=== PATIENT | female | born 1990 | race Caucasian/White ===

== ENCOUNTER 2017-04-23 02:30 | Inpatient (IN) | payer BC ==
[2017-04-23] MEDS ORDERED: Lidocaine 1% 50 ML MDV INJECT ONE (16:22)
[2017-04-23] MEDS ORDERED: Ondansetron 4 MG/2 ML SDV IVPUSH PRN (16:22)
[2017-04-23] MEDS ORDERED: Sodium Chloride 0.9% 10 ML Syringe FLUSH PRN (16:22)
[2017-04-23] MEDS ORDERED: Nalbuphine 20 MG/1 ML Amp IVPUSH PRN (16:25)
[2017-04-23] MEDS ORDERED: Oxytocin/Lactated Ringers 10 UNIT/1,000 ML BAG IV SCH ×2 (16:30)
[2017-04-23] MEDS: Lactated Ringers 1,000 ML IV SCH ×3 (16:49→22:01)
--- NOTE | 2017-04-23 17:36 | PCM.HP ---
<Aleah Mayes - Last Filed: 04/23/17 17:26> H&P History of Present Illness - General Date of Service: 04/23/17 Admit Problem/Dx: 39 week 4/7 week intrauterine , induction of labor Source of Information: Patient History Limitations: Reports: No Limitations - History of Present Illness Initial Comments - Free Text/Narative: Patient is a 27 year old white female that presents to the hospital for induction of labor and delivery at [facility]. She has made cervical change from her last evaluation in clinic from 2 cm to 4 cm. Her MONIQUE is 04/26/2017 and this is based on ultrasound reading from 09/15/2016. Her course has been unremarkable. She was seen on regular basis, fundal height growth was appropriate. Weight gain was from 133 at the first visit to 175 taken in hospital for a total of 42 pound weight gain. She was noted to have an elevated blood pressure on 02/15/17, but the rest of the blood pressures have been in normal limits including todays. Associated Symptoms: Reports: No Other Symptoms - Related Data Allergies/Adverse Reactions: Allergies Allergy/AdvReac Type Severity Reaction Status Date / Time No Known Allergies Allergy Verified 04/23/17 16:22 Exam - Vital Signs Weight: 79.379 kg - Patient Data Lab Results Last 24 hrs: Laboratory Results - last 24 hr 04/23/17 Range/Units 16:46 WBC 9.75 (3.98-10.04) K/mm3 RBC 3.44 L (3.98-5.22) M/mm3 Hgb 11.1 L (11.2-15.7) gm/L Hct 32.1 L (34.1-44.9) % MCV 93.3 (79.4-94.8) fl MCH 32.3 H (25.6-32.2) pg MCHC 34.6 (32.2-35.5) g/dl RDW Std Deviation 41.9 (36.4-46.3) fL Plt Count 257 (182-369) K/mm3 MPV 9.7 (9.4-12.3) fl Neut % (Auto) 68.8 (34.0-71.1) % Lymph % (Auto) 18.7 L (19.3-51.7) % [place] % (Auto) 10.8 (4.7-12.5) % Eos % (Auto) 1.0 (0.7-5.8) Baso % (Auto) 0.2 (0.1-1.2) % Neut # (Auto) 6.71 H (1.56-6.13) K/mm3 Lymph # (Auto) 1.82 (1.18-3.74) K/mm3 [place] # (Auto) 1.05 H (0.24-0.36) K/mm3 Eos # (Auto) 0.10 (0.04-0.36) K/mm3 Baso # (Auto) 0.02 (0.01-0.08) K/mm3 Result Diagrams: 04/23/17 16:46 *Q Meaningful Use (ADM) - VTE *Q VTE Criteria *Q: - Stroke *Q Stroke Criteria *Q: - AMI *Q AMI Criteria *Q: Orders Last 24hrs: Active Orders 24 hr Category Date Time Status Activity as Tolerated [RC] PFP Care 04/23/17 16:22 Active Communication Order [RC] ASDIRECTED Care 04/23/17 16:22 Active Heart Tones [RC] ASDIRECTED Care 04/23/17 16:23 Active Notify Provider [RC] PFP Care 04/23/17 16:22 Active Notify Provider [RC] PRN Care 04/23/17 16:22 Active Peripheral IV Care [RC] . DIRECTED Care 04/23/17 16:23 Active Vital Signs [RC] PER UNIT ROUTINE Care 04/23/17 16:22 Active Clear Liquid Diet [DIET] Diet 04/23/17 Dinner Active Lactated Ringers [Ringers, Lactated] 1,000 ml Med 04/23/17 16:30 Active IV ASDIRECTED Nalbuphine [Nubain] Med 04/23/17 16:25 Active 10 mg IVPUSH Q3H PRN Ondansetron [Zofran] Med 04/23/17 16:22 Active 4 mg IVPUSH Q4H PRN Oxytocin/Lactated Ringers [Pitocin in LR 10 Units/1,000 Med 04/23/17 16:30 Active ML] 10 unit in 1,000 ml IV .CONTINUOUS Oxytocin/Lactated Ringers [Pitocin in LR 10 Units/1,000 Med 04/23/17 16:30 Active ML] 10 unit in 1,000 ml IV TITRATE Sodium Chloride 0.9% [Saline Flush] Med 04/23/17 16:22 Active 10 ml FLUSH ASDIRECTED PRN Electronic Heart Tones Ext w TOCO [WOMSER] Oth 04/23/17 16:22 Ordered Routine Electronic Heart Tones Internal [WOMSER] Per Unit Ot 04/23/17 16:22 Ordered Routine Peripheral IV Insertion Adult [OM.PC] Routine Oth 04/23/17 16:22 Ordered Resuscitation Status Routine Resus Stat 04/23/17 16:22 Ordered Medication Orders Lactated Ringer's (Ringers, Lactated) 1,000 mls @ 100 mls/hr IV ASDIRECTED RICKI Last Admin: 04/23/17 16:49 Dose: 100 mls/hr Oxytocin/Lactated Ringer's (Pitocin In Lr 10 Units/1,000 Ml) 10 unit in 1,000 mls @ 500 mls/hr IV .CONTINUOUS RICKI Oxytocin/Lactated Ringer's (Pitocin In Lr 10 Units/1,000 Ml) 10 unit in 1,000 mls @ 12 mls/hr IV TITRATE RICKI; 2 MUNITS/MIN PRN Reason: Protocol Last Admin: 04/23/17 16:50 Dose: 2 munits/min, 12 mls/hr Nalbuphine HCl (Nubain) 10 mg IVPUSH Q3H PRN PRN Reason: Pain Ondansetron HCl (Zofran) 4 mg IVPUSH Q4H PRN PRN Reason: Nausea/Vomiting Sodium Chloride (Saline Flush) 10 ml FLUSH ASDIRECTED PRN PRN Reason: Keep Vein Open <Al Krishna F - Last Filed: 04/24/17 03:15> H&P History of Present Illness - General Admit Problem/Dx: Admission Diagnosis/Problem Admission Diagnosis/Problem Normal Source of Information: Patient History Limitations: Reports: No Limitations - History of Present Illness Initial Comments - Free Text/Narative: course was relatively unremarkable. Patient made good fundal height growth and had appropriate weight gain. She has no concerns. lab: Blood is A+, GC and chlamydia S is negative. HIV and hepatitis B essays negative. VDRL was nonreactive. Group B strep screen was negative. Hemoglobin at first visit was 11.0 g/dL and platelets were 372,000. Pap smear is negative. Second trimester labs included a hemoglobin of 12.0 g/dL and platelets of 246,000. Diabetic screening test was normal with 1 hour GTT of 81. Allergies: none Medications: 1. vitamins 2. Ferrous sulfate 325 mg per day. Past surgical history: [place] teeth extraction Past medical history: Unremarkable Family history: No known history of hypertension, diabetes or cancer in the family. Her parents are alive and well. Maternal grandmother is . Maternal grandfather is alive at age 96. Paternal grandfather is secondary to alcohol abuse. Paternal grandfather secondary to alcohol abuse. Mother has section for failure to progress. No bleeding or clotting disorders noted. No anesthesia problems noted. Social history. Patient is . is Khari Pulido. She denies any significant loss of alcohol, drugs or tobacco. 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 Both originated in [facility] but are currently living and working in [place]. Her is an eighth gradecigar packer and grader. She has a good support system. Review of systems: Skin: Negative CardioVascular: No chest pain or exercise intolerance Respiratory: No infectious symptoms or shortness of breath GI: Negative : changes associated with including fundal height growth Musculoskeletal: Occasional bilateral lower extremity edema-mild Neurological: Negative Physical exam: Blood pressure 119/74. Pulse is 58. Respirations 16. Temperature is 98.6. Weight is 175 pounds. Height is 5 feet 11. heart rate 140. In general patient is well-developed, well-nourished, pleasant female stated age in no acute distress. She is alert and oriented 3 and appears to be a good historian. Skin is warm and dry without lesions. HEENT, neck and back within normal limits Lungs are clear with good breath sounds in all lung lawler. Cardiovascular exam shows regular rate and rhythm without murmurs. Breasts exam deferred, having been done at first it was found to be normal. Patient does plan to nurse Abdomen is protuberant fundal height of 39 cm, consistent with dates. Baby in a vertex presentation by Bill maneuvers. Cervix is 4 cm, 90% effaced, -1 station, anterior, very soft. Bag markham intact. Extremities and neurological exam are grossly within normal limits. Exam - Vital Signs Vital Signs: Last Vital Signs Temp 36.8 C 07/30/17 21:33 Pulse 84 04/23/17 21:33 Resp 16 04/23/17 21:33 BP 134/74 04/23/17 21:33 Pulse Ox 96 04/23/17 21:33 - Patient Data Lab Results Last 24 hrs: Laboratory Results - last 24 hr 04/23/17 Range/Units 16:46 WBC 9.75 (3.98-10.04) K/mm3 RBC 3.44 L (3.98-5.22) M/mm3 Hgb 11.1 L (11.2-15.7) gm/L Hct 32.1 L (34.1-44.9) % MCV 93.3 (79.4-94.8) fl MCH 32.3 H (25.6-32.2) pg MCHC 34.6 (32.2-35.5) g/dl RDW Std Deviation 41.9 (36.4-46.3) fL Plt Count 257 (182-369) K/mm3 MPV 9.7 (9.4-12.3) fl Neut % (Auto) 68.8 (34.0-71.1) % Lymph % (Auto) 18.7 L (19.3-51.7) % [place] % (Auto) 10.8 (4.7-12.5) % Eos % (Auto) 1.0 (0.7-5.8) Baso % (Auto) 0.2 (0.1-1.2) % Neut # (Auto) 6.71 H (1.56-6.13) K/mm3 Lymph # (Auto) 1.82 (1.18-3.74) K/mm3 [place] # (Auto) 1.05 H (0.24-0.36) K/mm3 Eos # (Auto) 0.10 (0.04-0.36) K/mm3 Baso # (Auto) 0.02 (0.01-0.08) K/mm3 Result Diagrams: 04/23/17 16:46 *Q Meaningful Use (ADM) - VTE *Q VTE Criteria *Q: - Stroke *Q Stroke Criteria *Q: - AMI *Q AMI Criteria *Q: Orders Last 24hrs: Active Orders 24 hr Category Date Time Status Patient Status Manage Transfer [TRANSFER] Routine ADT 04/24/17 02:48 Active Activity as Tolerated [RC] PFP Care 04/23/17 16:22 Active Communication Order [RC] ASDIRECTED Care 04/23/17 16:22 Active Communication Order [RC] ASDIRECTED Care 04/23/17 20:57 Active Cooling Warming Measures [RC] ASDIRECTED Care 04/23/17 20:57 Active Heart Tones [RC] ASDIRECTED Care 04/23/17 16:23 Active Notify Provider [RC] ASDIRECTED Care 04/23/17 20:57 Active Notify Provider [RC] PFP Care 04/23/17 16:22 Active Notify Provider [RC] PRN Care 04/23/17 16:22 Active Oxygen Therapy [RC] ASDIRECTED Care 04/23/17 20:57 Active Peripheral IV Care [RC] . DIRECTED Care 04/23/17 16:23 Active Pulse Oximetry [RC] ASDIRECTED Care 04/23/17 20:57 Active Verify Patient Consent Obtain [RC] ASDIRECTED Care 04/23/17 20:57 Active Vital Signs [RC] PER UNIT ROUTINE Care 04/23/17 16:22 Active Vital Signs [RC] Q1H Care 04/23/17 20:57 Active Clear Liquid Diet [DIET] Diet 04/23/17 Dinner Active Bupivacaine/fentaNYL/NS [fentaNYL/Bupivacaine/NS 2 MCG- Med 04/23/17 21:00 Active 0.125% 100 ML] 100 ml EPIDUR ASDIRECTED Lactated Ringers [Ringers, Lactated] 1,000 ml Med 04/23/17 16:30 Active IV ASDIRECTED Nalbuphine [Nubain] Med 04/23/17 16:25 Active 10 mg IVPUSH Q3H PRN Ondansetron [Zofran] Med 04/23/17 16:22 Active 4 mg IVPUSH Q4H PRN Oxytocin/Lactated Ringers [Pitocin in LR 10 Units/1,000 Med 04/23/17 16:30 Active ML] 10 unit in 1,000 ml IV .CONTINUOUS Oxytocin/Lactated Ringers [Pitocin in LR 10 Units/1,000 Med 04/23/17 16:30 Active ML] 10 unit in 1,000 ml IV TITRATE Sodium Chloride 0.9% [Saline Flush] Med 04/23/17 16:22 Active 10 ml FLUSH ASDIRECTED PRN diphenhydrAMINE [Benadryl] Med 04/23/17 20:57 Active 25 mg IVPUSH Q6H PRN ePHEDrine [ePHEDrine Sulfate] Med 04/23/17 20:57 Active 5 mg IVPUSH ASDIRECTED PRN fentaNYL [Sublimaze] Med 04/23/17 20:57 Active 100 mcg EPIDUR Q3H PRN Electronic Heart Tones Ext w TOCO [WOMSER] Ot 04/23/17 16:22 Ordered Routine Electronic Heart Tones Internal [WOMSER] Per Unit Ot 04/23/17 16:22 Ordered Routine Peripheral IV Insertion Adult [OM.PC] Routine Oth 04/23/17 16:22 Ordered Resuscitation Status Routine Resus Stat 04/23/17 16:22 Ordered Medication Orders Diphenhydramine HCl (Benadryl) 25 mg IVPUSH Q6H PRN PRN Reason: Itching Ephedrine Sulfate (Ephedrine Sulfate) 5 mg IVPUSH ASDIRECTED PRN PRN Reason: HYPOTENTSION Fentanyl (Sublimaze) 100 mcg EPIDUR Q3H PRN PRN Reason: PAIN Last Admin: 04/23/17 21:29 Dose: 100 mcg Fentanyl/Bupivacaine HCl (Fentanyl/Bupivacaine/Ns 2 Mcg-0.125% 100 Ml) 100 ml EPIDUR ASDIRECTED RICKI Last Admin: 04/23/17 21:31 Dose: 100 ml Lactated Ringer's (Ringers, Lactated) 1,000 mls @ 100 mls/hr IV ASDIRECTED RICKI Last Admin: 04/23/17 21:00 Dose: 999 mls/hr Infusion: 04/23/17 21:00 Dose: 100 mls/hr Admin: 04/23/17 16:49 Dose: 100 mls/hr Oxytocin/Lactated Ringer's (Pitocin In Lr 10 Units/1,000 Ml) 10 unit in 1,000 mls @ 500 mls/hr IV .CONTINUOUS RICKI Oxytocin/Lactated Ringer's (Pitocin In Lr 10 Units/1,000 Ml) 10 unit in 1,000 mls @ 12 mls/hr IV TITRATE RICKI; 2 MUNITS/MIN PRN Reason: Protocol Last Titration: 04/23/17 23:45 Dose: 3 munits/min, 18 mls/hr Titration: 04/23/17 21:52 Dose: 6 munits/min, 36 mls/hr Titration: 04/23/17 20:35 Dose: 8 munits/min, 48 mls/hr Titration: 04/23/17 18:35 Dose: 6 munits/min, 36 mls/hr Titration: 04/23/17 17:28 Dose: 4 munits/min, 24 mls/hr Admin: 04/23/17 16:50 Dose: 2 munits/min, 12 mls/hr Nalbuphine HCl (Nubain) 10 mg IVPUSH Q3H PRN PRN Reason: Pain Ondansetron HCl (Zofran) 4 mg IVPUSH Q4H PRN PRN Reason: Nausea/Vomiting Sodium Chloride (Saline Flush) 10 ml FLUSH ASDIRECTED PRN PRN Reason: Keep Vein Open
[2017-04-23] MEDS ORDERED: ePHEDrine 50 MG/ML SDV IVPUSH PRN (20:57)
[2017-04-23] MEDS ORDERED: diphenhydrAMINE 50 MG/ML SDV IVPUSH PRN (20:57)
[2017-04-23] MEDS ORDERED: fentaNYL 100 MCG/2 ML SDV EPIDUR PRN (20:57)
[2017-04-23] MEDS ORDERED: Bupivacaine/fentaNYL/NS 100 ML Bag EPIDUR SCH (21:00)
--- NOTE | 2017-04-23 21:34 | PCM.PREANE ---
Preanesthetic Assessment - Anesthesia/Transfusion/Family Hx Anesthesia History: No Prior Anesthesia Family History of Anesthesia Reaction: No Transfusion History: No Prior Transfusion(s) - Review of Systems General: No Symptoms Pulmonary: No Symptoms Cardiovascular: No Symptoms Gastrointestinal: No Symptoms Neurological: No Symptoms Other: Reports: None - Physical Assessment Pulse: 84 O2 Sat by Pulse Oximetry: 96 Respiratory Rate: 16 Blood Pressure: 134/74 Temperature: 36.8 C Vital Signs: Last Vital Signs Temp 37.0 C 04/23/17 16:22 Pulse 58 L 04/23/17 16:22 Resp 16 04/23/17 16:22 BP 119/74 04/23/17 16:22 Pulse Ox Height: 1.8 m Weight: 79.379 kg ASA Class: 2 Mental Status: Alert & Oriented x3 Airway Class: Mallampati = 1 Dentition: Reports: Normal Dentition Thyro-Mental Finger Breadths: 3 Mouth Opening Finger Breadths: 3 ROM/Head Extension: Full Lungs: Clear to Auscultation, Normal Respiratory Effort Cardiovascular: Regular Rate, Regular Rhythm - Lab Values: Laboratory Last Values WBC 9.75 K/mm3 (3.98-10.04) 04/23/17 16:46 RBC 3.44 M/mm3 (3.98-5.22) L 04/23/17 16:46 Hgb 11.1 gm/L (11.2-15.7) L 04/23/17 16:46 Hct 32.1 % (34.1-44.9) L 04/23/17 16:46 MCV 93.3 fl (79.4-94.8) 04/23/17 16:46 MCH 32.3 pg (25.6-32.2) H 04/23/17 16:46 MCHC 34.6 g/dl (32.2-35.5) 04/23/17 16:46 RDW Std Deviation 41.9 fL (36.4-46.3) 04/23/17 16:46 Plt Count 257 K/mm3 (182-369) 04/23/17 16:46 MPV 9.7 fl (9.4-12.3) 04/23/17 16:46 Neut % (Auto) 68.8 % (34.0-71.1) 04/23/17 16:46 Lymph % (Auto) 18.7 % (19.3-51.7) L 04/23/17 16:46 [place] % (Auto) 10.8 % (4.7-12.5) 04/23/17 16:46 Eos % (Auto) 1.0 (0.7-5.8) 04/23/17 16:46 Baso % (Auto) 0.2 % (0.1-1.2) 04/23/17 16:46 Neut # (Auto) 6.71 K/mm3 (1.56-6.13) H 04/23/17 16:46 Lymph # (Auto) 1.82 K/mm3 (1.18-3.74) 04/23/17 16:46 [place] # (Auto) 1.05 K/mm3 (0.24-0.36) H 04/23/17 16:46 Eos # (Auto) 0.10 K/mm3 (0.04-0.36) 04/23/17 16:46 Baso # (Auto) 0.02 K/mm3 (0.01-0.08) 04/23/17 16:46 - Allergies Allergies/Adverse Reactions: Allergies Allergy/AdvReac Type Severity Reaction Status Date / Time No Known Allergies Allergy Verified 04/23/17 16:22 - Anesthesia Plan Pre-Op Medication Ordered: None - Acknowledgements Anesthesia Type Planned: Epidural Pt an Appropriate Candidate for the Planned Anesthesia: Yes Alternatives and Risks of Anesthesia Discussed w Pt/Guardian: Yes Pt/Guardian Understands and Agrees with Anesthesia Plan: Yes PreAnesthesia Questionnaire Gastrointestinal History: Reports: GERD 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: - SUBSTANCE USE Smoking Status *Q: Never Smoker Second Hand Smoke Exposure: No Recreational Drug Use History: No - HOME MEDS Home Medications: Home Meds Ferrous Sulfate [Iron] 325 mg PO DAILY 04/23/17 [History] PNV95/Ferrous Fumarate/FA [ Tablet] 1 each PO DAILY 04/23/17 [History] - CURRENT (IN HOUSE) MEDS Current Meds: Current Medications Diphenhydramine HCl (Benadryl) 25 mg IVPUSH Q6H PRN PRN Reason: Itching Ephedrine Sulfate (Ephedrine Sulfate) 5 mg IVPUSH ASDIRECTED PRN PRN Reason: HYPOTENTSION Fentanyl (Sublimaze) 100 mcg EPIDUR Q3H PRN PRN Reason: PAIN Last Admin: 04/23/17 21:29 Dose: 100 mcg Fentanyl/Bupivacaine HCl (Fentanyl/Bupivacaine/Ns 2 Mcg-0.125% 100 Ml) 100 ml EPIDUR ASDIRECTED RICKI Last Admin: 04/23/17 21:31 Dose: 100 ml Lactated Ringer's (Ringers, Lactated) 1,000 mls @ 100 mls/hr IV ASDIRECTED RICKI Last Admin: 04/23/17 21:00 Dose: 999 mls/hr Oxytocin/Lactated Ringer's (Pitocin In Lr 10 Units/1,000 Ml) 10 unit in 1,000 mls @ 500 mls/hr IV .CONTINUOUS RICKI Oxytocin/Lactated Ringer's (Pitocin In Lr 10 Units/1,000 Ml) 10 unit in 1,000 mls @ 12 mls/hr IV TITRATE RICKI; 2 MUNITS/MIN PRN Reason: Protocol Last Titration: 04/23/17 20:35 Dose: 8 munits/min, 48 mls/hr Nalbuphine HCl (Nubain) 10 mg IVPUSH Q3H PRN PRN Reason: Pain Ondansetron HCl (Zofran) 4 mg IVPUSH Q4H PRN PRN Reason: Nausea/Vomiting Sodium Chloride (Saline Flush) 10 ml FLUSH ASDIRECTED PRN PRN Reason: Keep Vein Open Discontinued Medications Lidocaine HCl (Xylocaine 1%) 50 ml INJECT ONETIME ONE Stop: 04/23/17 16:23
[2017-04-24] MEDS ORDERED: Lidocaine 1% 50 ML MDV ONE (02:08)
--- NOTE | 2017-04-24 02:55 | PCM.SN ---
- Free Text/Narrative Note: Noa is a 27-year-old 1 now para 1001 white female who was admitted late afternoon on 04/23/2017 for elective induction of labor at 39-4/7 weeks gestational age. She underwent Pitocin/artificial rupture membranes induction. She progressed adequately in labor and became completely dilated at approximately 0100 hrs. on 04/24/2017. She pushed for approximately 1 hour and 30 minutes and delivered a viable, hutson, male infant weighing 2940 g (6 lbs. 8 oz.), having Apgars of 8 and 9 and a length of 20.5 inches at 0230 hrs. on 04/24/2017. Baby delivered in the left occiput anterior position. The baby was placed on mom's abdomen. The cord was clamped 2 and cut. Cord blood was then obtained. Placenta delivered intact and complete in a Suleman presentation. It was discarded per patient desire. The umbilical cord had 3 vessels. Patient was given lidocaine 1%-10 mL total. The patient was noted to have a superficial vaginal laceration which was closed with a short running, locked suture of 3-0 Monocryl. Pitocin was administered after delivery of the baby. Estimated blood loss was 100 mL. Condition: Good. Patient plans to nurse.
[2017-04-24] MEDS ORDERED: Benzocaine/Menthol 20%-0.5% Spray 56 GM Canister TOP PRN (03:24)
[2017-04-24] MEDS ORDERED: Lanolin 100% Cream 7 GM Tube TOP PRN (03:24)
[2017-04-24] MEDS ORDERED: Witch Hazel Medicated Pads 100/Jar TOP PRN (03:24)
--- NOTE | 2017-04-24 07:46 | PCM48HPAN ---
Post Anesthesia Note - EVALUATION WITHIN 48HRS OF ANESTHETIC Vital Signs in Normal Range: Yes Patient Participated in Evaluation: Yes Respiratory Function Stable: Yes Airway Patent: Yes Cardiovascular Function Stable: Yes Hydration Status Stable: Yes Pain Control Satisfactory: Yes Nausea and Vomiting Control Satisfactory: Yes Mental Status Recovered: Yes
--- NOTE | 2017-04-24 08:17 | PCM.SN ---
- Free Text/Narrative Note: Patient is doing well this same. Minimal lochia. Pain is under good control. She is ambulating well. Epidural sworn off completely. She is nursing without problems and is voided without concerns. Patient is afebrile. Vital signs stable. Abdomen is flat, soft, nontender with uterus at umbilicus. Legs nontender. Assessment/plan: Doing well . Nursing going well. Recommend routine cares.
[2017-04-24] MEDS ORDERED: Acetaminophen 325 MG Tab PO PRN (11:39)
[2017-04-24] MEDS: Prenatal Multivitamin with Calcium/Folic Acid/Iron Tab PO SCH (12:14)
[2017-04-24] MEDS: Ibuprofen 600 MG Tab PO PRN ×2 (18:28→23:59)
[2017-04-24] MEDS: Docusate Sodium 100 MG Cap PO PRN (21:19)
[2017-04-24] MEDS ORDERED: Bupivacaine 0.25% 10 ML SDV ONE (22:22)
--- NOTE | 2017-04-25 07:57 | PCM.DCSUM1 ---
Discharge Summary - Hospital Course Free Text/Narrative:: Noa is a 27-year-old 1 now para 1001 white female who was admitted late afternoon on 04/23/2017 for elective induction of labor at 39-4/7 weeks gestational age. She underwent Pitocin/artificial rupture membranes induction. She progressed adequately in labor and became completely dilated at approximately 0100 hrs. on 04/24/2017. She pushed for approximately 1 hour and 30 minutes and delivered a viable, hutson, male infant weighing 2940 g (6 lbs. 8 oz.), having Apgars of 8 and 9 and a length of 20.5 inches at 0230 hrs. on 04/24/2017. Baby delivered in the left occiput anterior position. The baby was placed on mom's abdomen. The cord was clamped 2 and cut. Cord blood was then obtained. Placenta delivered intact and complete in a Suleman presentation. It was discarded per patient desire. The umbilical cord had 3 vessels. Patient was given lidocaine 1%-10 mL total. The patient was noted to have a superficial vaginal laceration which was closed with a short running, locked suture of 3-0 Monocryl. Pitocin was administered after delivery of the baby. Estimated blood loss was 100 mL. Condition: Good. Patient plans to nurse. patient's done well. She is nursing concerns, ambulating well and follow-up CBC is within normal limits. . Is down somewhat. She is doing well and desires to go home. - Discharge Data Discharge Date: 04/25/17 Discharge Disposition: Home, Self-Care 01 Condition: Good - Patient Instructions Diet: Regular Diet as Tolerated (Nursing diet was increased calcium and calories as directed) Activity: As Tolerated (No intercourse or tampons until bleeding resolves) Driving: May Drive Today Showering/Bathing: May Shower (May take a bath) Notify Provider of: Fever, Increased Pain, Swelling and Redness, Nausea and/or Vomiting - Discharge Plan Home Medications: Home Meds Ferrous Sulfate [Iron] 325 mg PO DAILY 04/23/17 [History] PNV95/Ferrous Fumarate/FA [ Tablet] 1 each PO DAILY 04/23/17 [History] Ibuprofen [IJD: Ibuprofen] 600 mg PO Q6H PRN #30 tablet 04/25/17 [Rx] - Patient Data Vitals - Most Recent: Last Vital Signs Temp 36.2 C 04/25/17 03:35 Pulse 49 L 04/25/17 03:35 Resp 16 04/25/17 03:35 BP 111/76 04/25/17 03:35 Pulse Ox 97 04/25/17 03:35 Weight - Most Recent: 79.379 kg Lab Results - Last 24 hrs: Laboratory Results - last 24 hr 04/25/17 Range/Units 06:30 WBC 11.77 H (3.98-10.04) K/mm3 RBC 3.11 L (3.98-5.22) M/mm3 Hgb 9.9 L (11.2-15.7) gm/L Hct 29.4 L (34.1-44.9) % MCV 94.5 (79.4-94.8) fl MCH 31.8 (25.6-32.2) pg MCHC 33.7 (32.2-35.5) g/dl RDW Std Deviation 42.8 (36.4-46.3) fL Plt Count 234 (182-369) K/mm3 MPV 9.6 (9.4-12.3) fl Med Orders - Current: Current Medications Acetaminophen (Tylenol) 650 mg PO Q6H PRN PRN Reason: Pain Last Admin: 04/24/17 12:13 Dose: 650 mg Benzocaine/Menthol (Dermoplast Pain Relief [place]) 0 gm TOP ASDIRECTED PRN PRN Reason: Perineal Comfort Measure Docusate Sodium (Colace) 100 mg PO BID PRN PRN Reason: Constipation Last Admin: 04/24/17 21:19 Dose: 100 mg Emollient Ointment (Lansinoh Hpa) 0 gm TOP ASDIRECTED PRN PRN Reason: Sore Nipples Ibuprofen (Motrin) 600 mg PO Q6H PRN PRN Reason: Pain Last Admin: 04/24/17 23:59 Dose: 600 mg Prenat Multivit/Ultimate Hoops Scoreboard Operator/Iron/Folic Ac ( Plus Iron) 1 each PO DAILY RICKI Last Admin: 04/24/17 12:14 Dose: Not Given Witch Shanel (Tucks) 1 pad TOP ASDIRECTED PRN PRN Reason: Hemorrhoid pain Discontinued Medications Bupivacaine HCl (Sensorcaine-Mpf 0.25%) 10 ml .ROUTE .STK-MED ONE Stop: 04/24/17 22:23 Diphenhydramine HCl (Benadryl) 25 mg IVPUSH Q6H PRN PRN Reason: Itching Ephedrine Sulfate (Ephedrine Sulfate) 5 mg IVPUSH ASDIRECTED PRN PRN Reason: HYPOTENTSION Fentanyl (Sublimaze) 100 mcg EPIDUR Q3H PRN PRN Reason: PAIN Last Admin: 04/23/17 21:29 Dose: 100 mcg Fentanyl/Bupivacaine HCl (Fentanyl/Bupivacaine/Ns 2 Mcg-0.125% 100 Ml) 100 ml EPIDUR ASDIRECTED RICKI Last Admin: 04/23/17 21:31 Dose: 100 ml Lactated Ringer's (Ringers, Lactated) 1,000 mls @ 100 mls/hr IV ASDIRECTED RICKI Last Admin: 04/23/17 22:01 Dose: 100 mls/hr Oxytocin/Lactated Ringer's (Pitocin In Lr 10 Units/1,000 Ml) 10 unit in 1,000 mls @ 500 mls/hr IV .CONTINUOUS RICKI Oxytocin/Lactated Ringer's (Pitocin In Lr 10 Units/1,000 Ml) 10 unit in 1,000 mls @ 12 mls/hr IV TITRATE RICKI; 2 MUNITS/MIN PRN Reason: Protocol Last Titration: 04/24/17 00:19 Dose: 0 munits/min, 0 mls/hr Lidocaine HCl (Xylocaine 1%) 50 ml INJECT ONETIME ONE Stop: 04/23/17 16:23 Lidocaine HCl (Xylocaine 1%) Confirm Administered Dose 50 ml .ROUTE .STK-MED ONE Stop: 04/24/17 02:09 Nalbuphine HCl (Nubain) 10 mg IVPUSH Q3H PRN PRN Reason: Pain Ondansetron HCl (Zofran) 4 mg IVPUSH Q4H PRN PRN Reason: Nausea/Vomiting Sodium Chloride (Saline Flush) 10 ml FLUSH ASDIRECTED PRN PRN Reason: Keep Vein Open *Q Meaningful Use (DIS) - VTE *Q VTE Criteria *Q: - Stroke *Q Stroke Criteria *Q: - AMI *Q AMI Criteria *Q:
[2017-04-25] MEDS: Prenatal Multivitamin with Calcium/Folic Acid/Iron Tab PO SCH (10:23)
[2017-04-25] MEDS: Docusate Sodium 100 MG Cap PO PRN ×2 (10:23→21:34)
[2017-04-25] MEDS: Ibuprofen 600 MG Tab PO PRN (12:30)
[2017-04-26] MEDS: Ibuprofen 600 MG Tab PO PRN (04:09)
[2017-04-26] MEDS: Prenatal Multivitamin with Calcium/Folic Acid/Iron Tab PO SCH (10:21)
[2017-04-26 11:12] VITALS: BP 118/76
== END 2017-04-26 11:55 | disposition home or self-care (01) | DRG 560 ==
LOC: JD.OB 02:30 → OBSVTOIN 04-24 02:30 → JD.OB 04-24 02:30
PROVIDERS: ADMIT Obstetrics & Gynecology; ATTEND Obstetrics & Gynecology
PROC: 10E0XZZ Delivery of Products of Conception, External Approach (ICD-10-PCS; principal; 2017-04-24)
PROC: 3E033VJ Introduction of Other Hormone into Peripheral Vein, Percutaneous Approach (ICD-10-PCS; 2017-04-24)
PROC: 10907ZC Drainage of Amniotic Fluid, Therapeutic from Products of Conception, Via Natural or Artificial Opening (ICD-10-PCS; 2017-04-24)
DX: O70.0 First degree perineal laceration during delivery (principal); Z3A.39 39 weeks gestation of pregnancy; Z37.0 Single live birth
CPT/HCPCS: 36415; 85025; 85027; A9270-GY; J2590; J3010; J7120

== ENCOUNTER 2019-11-06 10:11 | Inpatient (IN) | payer BC ==
[~2019-11-06 10:11] MED LIST: Bupivacaine 0.25% 10 ML SDV ONE
--- NOTE | 2019-11-06 10:22 | PCM.LDHP ---
L&D History of Present Illness - General Date of Service: 11/06/19 Admit Problem/Dx: Admission Diagnosis/Problem Admission Diagnosis/Problem 11/06/19 10:13 Noa is a 29-year-old 2 para 1001 white female who is presently at 39- 4/7 weeks gestational age with an MONIQUE of 11/09/2019 was admitted for elective induction of labor secondary to increased distance from hospital and weather conditions. Source of Information: Patient History Limitations: Reports: No Limitations - History of Present Illness Introduction:: Noa is a 29-year-old 2 para 1001 white female who is presently at 39- 4/7 weeks gestational age with an MONIQUE of 11/09/2019 was admitted for elective induction of labor secondary to increased distance from hospital and weather conditions. The procedure of induction of labor, its risks, benefits, alternatives of care including allowing natural onset of labor are all discussed with patient. She appears understand and wishes to proceed. Last evaluation in clinic on 10/29/2019 for cervix was 3+ centimeters, 80% effaced, very soft, mid position and -2 station. Plan is to proceed with artificial rupture membranes induction with possible augmentation with Pitocin as necessary. She appears understand and wishes to proceed. 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 MONIQUE at 11/09/2019 as determined by an early ultrasound done on 05/06/2019 at 13-2/7 weeks gestational age. She had a supporting ultrasound done on 07/11/2019.Her course is been relatively unremarkable. She has made appropriate fundal height growth. Her weight gain has been from 133.8-175.2 pounds approximate 41 pound weight gain. Her vital signs were stable throughout the course. She is group B strep negative. Patient has a possible succenturiate placental lobe. This has not caused any problems during the course of . She declined genetic testing. She had a normal three-hour glucose tolerance test her after mildly elevated 1 hour GTT. She plans to breast-feed. She is okay with epidural. Patient is rubella immune. She has received her flu immunization and her T dap. Laboratory testing and : Blood is A+ with a negative MRI screening. Her initial hemoglobin at first visit was 11.0 g/dL. Patient was started on ferrous sulfate 325 mg per day in addition to her vitamin at that time. Her platelet count was 321,000. She is rubella immune. Urine culture was negative. Hepatitis B surface antigen and HIV assays were both negative. Chlamydia and gonorrhea tests were both negative. Second trimester testing showed a hemoglobin that was increased to 12.1 g/dL. Her diabetic screen was 177. Her lasting glucose was 77, 1 hour glucose was 141, 2 hour glucose was 104, and 3 hour glucose was 111. Her platelets at that time were 299 ,000. RPR third trimester on 08/19/2019 was negative. Group B strep screen was negative. Allergies: None Medications: 1. Para sulfate 325 mg by mouth daily 2. vitamins 1 by mouth daily Past medical history: Normal spontaneous vaginal delivery 1. 2. Ros[place] teeth extraction Past surgical history: Unremarkable Family history: Father is alive and well and has had atrial fibrillation and seizures. He is on medications. He is age 59... 2 sisters alive and well. Maternal grandmother secondary to kidney disease. Maternal grandfather is at age 96 with hypertension and heart disease. Paternal grandmother is at an elderly age from alcohol related issues. Paternal grandfather secondary to alcohol issues. No anesthesia, bleeding, blood clotting or -related problems noted in the family. There is a family history of Crohn's disease. Social history: Patient is . is Khari. She lives in [place], [place]. 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 She does not use any significant most alcohol, drugs or tobacco. Review of systems: In general patient has no complaints. Baby has been active. Skin: Negative Lungs: No infectious symptoms or shortness of breath Cardiovascular: No chest pain or exercise intolerance Breasts: Changes associated with . GI: Negative : Body habitus changes with increase in fundal height growth. Musculoskeletal: Negative Neurological: Negative In general the patient is well-developed, well-nourished, pleasant female of stated age in no acute distress. Skin is warm dry without lesions. HEENT, neck and back within normal limits. Lungs are clear with good breath sounds in all lung lawler. Cardiovascular exam shows regular and rhythm without murmurs. Breast exam done at first visit was unremarkable. It is not repeated at this time. Patient does plan to breast-feed. Abdomen is gravid with fundal height of 36.5 cm on last evaluation in clinic. Baby in vertex presentation. Genital per digital exam is as stated in history of present illness. Extremities and neurological exam are grossly within normal limits. 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 39-4/7 week intrauterine , admitted for elective induction of labor. 2. B strep screen negative. 3. Patient is rubella immune. 4. Patient received her flu immunization on 08/19/2019. 5. Patient received her T dap on 10/07/2019 6. Patient is okay with epidural. 7. Patient plans to breast-feed. Plan: 1. Routine labor care. Will initiate labor with artificial rupture membranes. Will provide Pitocin augmentation if indicated. 2. Epidural when necessary per patient desire 3. RPR and CBC upon admission per protocol 4. Anticipate normal spontaneous vaginal delivery 5. Support breast feeding decision
[2019-11-06] MEDS ORDERED: Sodium Chloride 0.9% 10 ML Syringe FLUSH PRN (10:56)
[2019-11-06] MEDS ORDERED: Nalbuphine 10 MG/ML Syringe IVPUSH PRN (10:56)
[2019-11-06] MEDS ORDERED: Oxytocin/Lactated Ringers 10 UNIT/1,000 ML BAG IV SCH ×2 (11:00)
[2019-11-06] MEDS ORDERED: ePHEDrine 50 MG/ML SDV IVPUSH PRN (12:15)
[2019-11-06] MEDS ORDERED: Ondansetron 4 MG/2 ML SDV IVPUSH PRN (12:15)
[2019-11-06] MEDS ORDERED: fentaNYL 100 MCG/2 ML SDV EPIDUR PRN (12:15)
[2019-11-06] MEDS ORDERED: Bupivacaine/fentaNYL/NS 100 ML Bag EPIDUR SCH (12:15)
[2019-11-06] MEDS ORDERED: Phenylephrine 1 MG in Sodium Chloride 0.9% 10 ML IV SCH (12:15)
--- NOTE | 2019-11-06 12:30 | PCM.PREANE ---
Preanesthetic Assessment - Anesthesia/Transfusion/Family Hx Anesthesia History: Prior Anesthesia Without Reaction Family History of Anesthesia Reaction: No Transfusion History: No Prior Transfusion(s) Intubation History: Unknown - Review of Systems General: No Symptoms Pulmonary: No Symptoms Cardiovascular: No Symptoms, Palpitations, Lightheadedness (positional changes) Gastrointestinal: No Symptoms (GERD) Neurological: No Symptoms Other: Reports: None - Physical Assessment NPO Status Date: 11/06/19 NPO Status Time: 09:00 Vital Signs: HR:71 BP:107/70 Sat:100 Temp:99 Resp:20 Height: 1.78 m Weight: 82.554 kg ASA Class: 2 Mental Status: Alert & Oriented x3 Airway Class: Mallampati = 2 Dentition: Reports: Normal Dentition, Caries Thyro-Mental Finger Breadths: 3 Mouth Opening Finger Breadths: 3 ROM/Head Extension: Full Lungs: Clear to Auscultation, Normal Respiratory Effort Cardiovascular: Regular Rate, Regular Rhythm, No Murmurs - Lab Values: Laboratory Last Values WBC 8.47 K/mm3 (3.98-10.04) 11/06/19 11:21 RBC 3.78 M/mm3 (3.98-5.22) L 11/06/19 11:21 Hgb 11.7 gm/dl (11.2-15.7) 11/06/19 11:21 Hct 35.4 % (34.1-44.9) 11/06/19 11:21 MCV 93.7 fl (79.4-94.8) 11/06/19 11:21 MCH 31.0 pg (25.6-32.2) 11/06/19 11:21 MCHC 33.1 g/dl (32.2-35.5) 11/06/19 11:21 RDW Std Deviation 43.1 fL (36.4-46.3) 11/06/19 11:21 Plt Count 290 K/mm3 (182-369) 11/06/19 11:21 MPV 8.9 fl (9.4-12.3) L 11/06/19 11:21 Neut % (Auto) 72.8 % (34.0-71.1) H 11/06/19 11:21 Lymph % (Auto) 17.2 % (19.3-51.7) L 11/06/19 11:21 [place] % (Auto) 8.6 % (4.7-12.5) 11/06/19 11:21 Eos % (Auto) 0.8 (0.7-5.8) 11/06/19 11:21 Baso % (Auto) 0.1 % (0.1-1.2) 11/06/19 11:21 Neut # (Auto) 6.16 K/mm3 (1.56-6.13) H 11/06/19 11:21 Lymph # (Auto) 1.46 K/mm3 (1.18-3.74) 11/06/19 11:21 [place] # (Auto) 0.73 K/mm3 (0.24-0.36) H 11/06/19 11:21 Eos # (Auto) 0.07 K/mm3 (0.04-0.36) 11/06/19 11:21 Baso # (Auto) 0.01 K/mm3 (0.01-0.08) 11/06/19 11:21 All labs reviewed and noted and within acceptable ranges to proceed with epidural if desired. 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: - HOME MEDS Home Medications: Home Meds Ferrous Sulfate [Iron] 325 mg PO DAILY 04/23/17 [History] Pnv No.95/Ferrous Fum/Folic AC [ Tablet] 1 each PO DAILY 04/23/17 [ History] Ibuprofen [IJD: Ibuprofen] 600 mg PO Q6H PRN #30 tablet 04/25/17 [Rx] - CURRENT (IN HOUSE) MEDS Current Meds: Current Medications Ephedrine Sulfate (Ephedrine Sulfate) 5 mg IVPUSH ASDIRECTED PRN PRN Reason: Hypotension Fentanyl (Sublimaze) 100 mcg EPIDUR Q3H PRN PRN Reason: Pain Fentanyl/Bupivacaine HCl (Fentanyl/Bupivacaine/Ns 2 Mcg-0.125% 100 Ml) 100 ml EPIDUR ASDIRECTED RICKI Lactated Ringer's (Ringers, Lactated) 1,000 mls @ 100 mls/hr IV ASDIRECTED RICKI Oxytocin/Lactated Ringer's (Pitocin In Lr 10 Units/1,000 Ml) 10 unit in 1,000 mls @ 12 mls/hr IV TITRATE RICKI; Protocol Oxytocin/Lactated Ringer's (Pitocin In Lr 10 Units/1,000 Ml) 10 unit in 1,000 mls @ 100 mls/hr IV .CONTINUOUS RICKI Phenylephrine HCl 1 mg/ Sodium (Chloride) 10.1 mls @ 1 mls/sec IV TITRATE RICKI; Protocol Ondansetron HCl (Zofran) 4 mg IVPUSH ONETIME PRN PRN Reason: Nausea/Vomiting Sodium Chloride (Saline Flush) 10 ml FLUSH ASDIRECTED PRN PRN Reason: Keep Vein Open Discontinued Medications Nalbuphine HCl (Nubain) 10 mg IVPUSH Q2H PRN PRN Reason: Pain
[2019-11-06] MEDS: Lactated Ringers 1,000 ML IV SCH ×2 (13:15→15:00)
[2019-11-06] MEDS ORDERED: Calcium Carbonate 500 MG Tab.Chew PO PRN (16:42)
--- NOTE | 2019-11-06 17:34 | PCM.SN ---
- Free Text/Narrative Note: Delivery Note:
[2019-11-06] MEDS ORDERED: Benzocaine/Menthol 20%-0.5% Spray 56 GM Canister TOP PRN (18:08)
[2019-11-06] MEDS ORDERED: Witch Hazel Medicated Pads 40/Jar TOP PRN (18:08)
[2019-11-06] MEDS ORDERED: Acetaminophen 325 MG Tab PO PRN (18:08)
[2019-11-06] MEDS: Ibuprofen 600 MG Tab PO PRN (20:14)
[2019-11-07] MEDS: Docusate Sodium 100 MG Cap PO PRN ×2 (01:00→15:52)
[2019-11-07] MEDS: Ibuprofen 600 MG Tab PO PRN ×3 (01:00→14:34)
--- NOTE | 2019-11-07 06:42 | PCM.SN ---
- Free Text/Narrative Note: note: Patient is doing well in the period. Minimal lochia, voiding well, ambulated without problems. Nursing without concerns. Patient is afebrile, vital signs are stable Abdomen is flat, soft, uterus is below the umbilicus and is firm and nontender. Legs are nontender. Assessment: recovery going well. Plan: Routine care. Patient be discharged home within the next 24-48 hours.
--- NOTE | 2019-11-07 08:12 | PCM48HPAN ---
Post Anesthesia Note - EVALUATION WITHIN 48HRS OF ANESTHETIC Vital Signs in Normal Range: Yes Patient Participated in Evaluation: Yes Respiratory Function Stable: Yes Airway Patent: Yes Cardiovascular Function Stable: Yes Hydration Status Stable: Yes Pain Control Satisfactory: Yes Nausea and Vomiting Control Satisfactory: Yes Mental Status Recovered: Yes Vital Signs: Last Vital Signs Temp 36.3 C 11/06/19 20:17 Pulse 58 L 11/06/19 20:17 Resp 16 11/06/19 20:17 BP 105/71 11/06/19 20:17 Pulse Ox 99 11/06/19 20:17
[2019-11-07] MEDS ORDERED: Prenatal Multivitamin with Calcium/Folic Acid/Iron Tab PO SCH (09:00)
--- NOTE | 2019-11-07 13:12 | PCM.DCSUM1 ---
Discharge Summary - Hospital Course Free Text/Narrative:: And is a 29-year-old 2 now para 2002 white female who was admitted for elective induction of labor at 39+ weeks on 11/06/2019. She underwent artificial rupture membranes with resultant clear amniotic fluid. She progressed rapidly to complete cervical dilation and at approximately 1715 hrs. she delivered a viable, hutson, male infant with Apgars of 8 and 9, a length of 21.0 inches, A weight of 3290 g (7 pounds 4.1 ounces). Perineum was intact. Baby was placed on mom's abdomen and the IV Pitocin was increased to 500 mL per hour to facilitate increase in uterine tone and decrease likelihood of bleeding. The placenta delivered in a Faustin presentation all appeared intact and complete and was discarded per patient desire. A succenturiate lobe present. This appeared to be included with the complete placenta and is felt that no retention occurred. Estimated blood loss was approximately 100 mL. Patient plans to breast-feed. patient is under well. She is nursing without problems, has minimal lochia, was ambulating well and is voiding without concerns. She is desiring discharge home. Condition: Good. Diagnosis: Stroke: No - Discharge Data Discharge Date: 11/07/19 Discharge Disposition: Home, Self-Care 01 Condition: Good - Referral to Home Health Primary Care Physician: Al Krishna MD - Patient Instructions Diet: Regular Diet as Tolerated (Nursing diet with increase calories and calcium as recommended) Activity: As Tolerated (No intercourse or tampons until bleeding resolves) Driving: May Drive Today Showering/Bathing: May Shower (May take a bath) Notify Provider of: Fever, Increased Pain, Swelling and Redness, Nausea and/or Vomiting - Discharge Plan Home Medications: Home Meds Pnv No.95/Ferrous Fum/Folic AC [ Tablet] 1 each PO DAILY 04/23/17 [ History] Acetaminophen [Tylenol] 650 mg PO Q4H PRN tablet 11/07/19 [Rx] Ibuprofen [Motrin] 600 mg PO Q4H PRN tablet 11/07/19 [Rx] Patient Handouts: Vaginal Delivery, Care After Referrals: Al Krishna MD [Primary Care Provider] - - Discharge Summary/Plan Comment DC Time >30 min.: No Discharge Summary/Plan Comment: Discharge instructions: 1. Discharge home 2. Diet, activity and follow-up discussed with patient. Recommend nursing diet with increased calories and calcium. 3. Precautions given concern increased pain, bleeding, temperature, signs/ symptoms of DVT/PE. 4. Medications per home medication was printed, discussed with and given to the patient. 5. Return to clinic-Dr. Krishna[facility] in 2 weeks. Diagnosis: Term -delivered Condition: Good - Patient Data Vitals - Most Recent: Last Vital Signs Temp 36.9 C 11/07/19 08:05 Pulse 57 L 11/07/19 08:05 Resp 16 11/07/19 08:05 BP 111/75 11/07/19 08:05 Pulse Ox 100 11/07/19 08:05 Weight - Most Recent: 82.554 kg I&O - Last 24 hours: Intake & Output 11/06/19 11/07/19 11/07/19 22:59 06:59 14:59 Intake Total 1999 120 Balance 1999 120 Lab Results - Last 24 hrs: Laboratory Results - last 24 hr 11/06/19 Range/Units 11:21 RPR Non-reactive (NONREACTIVE) Med Orders - Current: Current Medications Acetaminophen (Tylenol) 650 mg PO Q4H PRN PRN Reason: mild pain or fever Benzocaine/Menthol (Dermoplast Pain Relief [facility]) 0 gm TOP ASDIRECTED PRN PRN Reason: Perineal Comfort Measure Last Admin: 11/06/19 19:25 Dose: 1 applicful Docusate Sodium (Colace) 100 mg PO BID PRN PRN Reason: Constipation Last Admin: 11/07/19 01:00 Dose: 100 mg Ibuprofen (Motrin) 600 mg PO Q4H PRN PRN Reason: Mild pain or fever Last Admin: 11/07/19 07:08 Dose: 600 mg Prenat Multivit/Production Operations Engineer/Iron/Folic Ac ( Plus Iron) 1 each PO DAILY RICKI Last Admin: 11/07/19 08:28 Dose: 1 each Witch Shanel (Tucks) 1 pad TOP ASDIRECTED PRN PRN Reason: Pain Last Admin: 11/06/19 19:25 Dose: 1 applic Discontinued Medications Bupivacaine HCl (Sensorcaine-Mpf 0.25%) 10 ml .ROUTE .STK-MED ONE Stop: 11/06/19 00:01 Calcium Carbonate/Glycine (Tums) 1,000 mg PO Q2H PRN PRN Reason: Indigestion Last Admin: 11/06/19 16:45 Dose: 1,000 mg Ephedrine Sulfate (Ephedrine Sulfate) 5 mg IVPUSH ASDIRECTED PRN PRN Reason: Hypotension Fentanyl (Sublimaze) 100 mcg EPIDUR Q3H PRN PRN Reason: Pain Last Admin: 11/06/19 15:36 Dose: 100 mcg Fentanyl/Bupivacaine HCl (Fentanyl/Bupivacaine/Ns 2 Mcg-0.125% 100 Ml) 100 ml EPIDUR ASDIRECTED RICKI Last Admin: 11/06/19 15:37 Dose: 100 ml Lactated Ringer's (Ringers, Lactated) 1,000 mls @ 100 mls/hr IV ASDIRECTED RICKI Last Admin: 11/06/19 15:00 Dose: 500 mls/hr Oxytocin/Lactated Ringer's (Pitocin In Lr 10 Units/1,000 Ml) 10 unit in 1,000 mls @ 12 mls/hr IV TITRATE RICKI; Protocol Last Titration: 11/06/19 14:10 Dose: 6 munits/min, 36 mls/hr Oxytocin/Lactated Ringer's (Pitocin In Lr 10 Units/1,000 Ml) 10 unit in 1,000 mls @ 100 mls/hr IV .CONTINUOUS RICKI Phenylephrine HCl 1 mg/ Sodium (Chloride) 10.1 mls @ 1 mls/sec IV TITRATE RICKI; Protocol Nalbuphine HCl (Nubain) 10 mg IVPUSH Q2H PRN PRN Reason: Pain Ondansetron HCl (Zofran) 4 mg IVPUSH ONETIME PRN PRN Reason: Nausea/Vomiting Sodium Chloride (Saline Flush) 10 ml FLUSH ASDIRECTED PRN PRN Reason: Keep Vein Open
[2019-11-07 15:46] VITALS: BP 105/72; PULSE 50
== END 2019-11-07 18:30 | disposition home or self-care (01) | DRG 560 ==
LOC: JD.OB 10:38 → OBSVTOIN 17:14 → JD.OB 17:15
PROVIDERS: ADMIT Obstetrics & Gynecology; ATTEND Obstetrics & Gynecology
PROC: 10E0XZZ Delivery of Products of Conception, External Approach (ICD-10-PCS; principal; 2019-11-06)
PROC: 10907ZC Drainage of Amniotic Fluid, Therapeutic from Products of Conception, Via Natural or Artificial Opening (ICD-10-PCS; 2019-11-06)
PROC: 3E0R3BZ Introduction of Anesthetic Agent into Spinal Canal, Percutaneous Approach (ICD-10-PCS; 2019-11-06)
DX: O80 Encounter for full-term uncomplicated delivery (principal); Z3A.39 39 weeks gestation of pregnancy; Z79.899 Other long term (current) drug therapy; Z37.0 Single live birth
CPT/HCPCS: 36415; 51701; 59025; 59409; 85025; 86592; 86850; 86900; 86901; A9270-GY; J2590; J3010; J3490; J7120

== ENCOUNTER 2024-09-23 07:11 | Inpatient (IN) | payer BC ==
[2024-09-23] MEDS ORDERED: Ondansetron 4 MG/2 ML SDV IVPUSH PRN (07:21)
[2024-09-23] MEDS ORDERED: Lidocaine 1% 50 ML MDV INJECT PRN (07:21)
[2024-09-23] MEDS ORDERED: Nalbuphine 10 MG/1 ML Vial IVPUSH PRN (07:21)
[2024-09-23] MEDS ORDERED: Calcium Carbonate 500 MG Tab.Chew PO PRN (07:21)
[2024-09-23] MEDS ORDERED: Sodium Chloride 0.9% 10 ML Syringe FLUSH PRN (07:21)
[2024-09-23] MEDS ORDERED: Oxytocin/0.9 % Sodium Chloride 30 UNIT/500 ML BAG IV SCH (07:30)
[2024-09-23 07:46] LABS: BASOPHILS ABSOLUTE AUTO 0.1 K/mm3 (0.0-0.2); BASOPHILS PERCENT AUTO 0.4 % (0.0-1.0); EOSINOPHILS ABSOLUTE AUTO 0.2 K/mm3 (0.0-0.4); EOSINOPHILS PERCENT AUTO 1.3 % (0.0-6.0); HEMATOCRIT 34.6 % (37.0-47.0); HEMOGLOBIN 11.8 gm/dl (12.0-16.0); IMMATURE GRAN ABSOLUTE AUTO 0.13 K/mm3 (0.00-0.05); LYMPHOCYTES ABSOLUTE AUTO 1.6 K/mm3 (1.0-4.8); LYMPHOCYTES PERCENT AUTO 12.2 % (24.0-44.0); MEAN CORPUSCULAR HEMOGLOBIN 31.7 pg (28.0-32.0); MEAN CORPUSCULAR HGB CONC 34.1 g/dl (32.0-36.0); MEAN PLATELET VOLUME 9.5 fl (9.4-12.3); MONOCYTES PERCENT AUTO 7.8 % (0.0-8.0); NEUTROPHILS ABSOLUTE AUTO 9.8 K/mm3 (1.8-7.7); NEUTROPHILS PERCENT AUTO 77.3 % (41.0-71.0); PLATELET COUNT,PLT 271 K/mm3 (150-400); RED BLOOD CELL COUNT 3.72 M/mm3 (4.10-5.30); WHITE BLOOD CELL COUNT,WBC 12.74 K/mm3 (3.9-11.3)
[2024-09-23] MEDS: Lactated Ringers 1,000 ML IV SCH (08:05)
[2024-09-23] MEDS: Oxytocin/0.9 % Sodium Chloride 30 UNIT/500 ML BAG IV SCH (08:08)
[2024-09-23] MEDS: Sodium Chloride 0.9% 10 ML Syringe FLUSH SCH (09:05)
[2024-09-23] MEDS ORDERED: diphenhydrAMINE 50 MG/ML SDV IVPUSH PRN (09:21)
[2024-09-23] MEDS ORDERED: ePHEDrine 50 MG/ML SDV IVPUSH PRN (09:21)
[2024-09-23] MEDS: Bupivacaine/fentaNYL/NS 100 ML Bag EPIDUR PRN (09:28)
[2024-09-23] MEDS ORDERED: Acetaminophen 325 MG Tab PO PRN (17:22)
[2024-09-23] MEDS: Benzocaine/Menthol 20%-0.5% Spray 78 GM Cannister TOP PRN (18:13)
[2024-09-23] MEDS: Witch Hazel Medicated Pads 40/Jar TOP PRN (18:13)
[2024-09-23] MEDS: Ibuprofen 600 MG Tab PO SCH (18:13)
[2024-09-24] MEDS: Docusate Sodium 100 MG Cap PO PRN (12:22)
[2024-09-24 18:06] VITALS: BP 115/71; PULSE 58
== END 2024-09-24 18:02 | disposition home or self-care (01) | DRG 560 ==
LOC: JD.OBCHECK 07:11 → JD.OB 07:16 → JD.OBCHECK 07:23 → OBSVTOIN 16:37 → JD.OB 16:49
PROVIDERS: ADMIT Family Medicine; ATTEND Family Medicine
PROC: 10E0XZZ Delivery of Products of Conception, External Approach (ICD-10-PCS; principal; 2024-09-23)
PROC: 3E0R3BZ Introduction of Anesthetic Agent into Spinal Canal, Percutaneous Approach (ICD-10-PCS; 2024-09-23)
PROC: 00HU33Z Insertion of Infusion Device into Spinal Canal, Percutaneous Approach (ICD-10-PCS; 2024-09-23)
PROC: 10907ZC Drainage of Amniotic Fluid, Therapeutic from Products of Conception, Via Natural or Artificial Opening (ICD-10-PCS; 2024-09-23)
DX: O80 Encounter for full-term uncomplicated delivery (principal); Z3A.39 39 weeks gestation of pregnancy; Z37.0 Single live birth
CPT/HCPCS: 01967; 36415; 51701; 59025; 59409; 85025; 86592; 86850; 86900; 86901; A9270-GY; C1758; J3490; J7120; J7999